=== PATIENT | female | born 1990 | race Caucasian/White ===

== ENCOUNTER 2023-02-05 19:23 | Emergency (ER) | payer OTHER ==
[~2023-02-05] VITALS: Ht 170.2 cm; Wt 70.9 kg
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
[2023-02-05] MEDS ORDERED: IBUPROFEN 600 MG TABLET ONE (20:18)
[2023-02-05] MEDS ORDERED: IBUPROFEN 600 MG TABLET PO ONE (20:30)
--- NOTE | 2023-02-05 21:19 | NUR ---
URINE COLLECTED AND SENT TO SEND TO LAB
[2023-02-06 00:59] VITALS: BP 120/66
--- NOTE | 2023-02-06 01:00 | NUR ---
Patient discharged to [facility] in stable condition. Written and verbal after care instructions given. Patient verbalizes understanding of instruction.
== END 2023-02-06 01:01 ==
LOC: ER 19:31
DX: S02.40DA Maxillary fracture, left side, initial encounter for closed fracture (principal); R68.84 Jaw pain; F31.9 Bipolar disorder, unspecified; F17.200 Nicotine dependence, unspecified, uncomplicated; Y04.2XXA Assault by strike against or bumped into by another person, initial encounter; Y93.89 Activity, other specified; Y92.89 Other specified places as the place of occurrence of the external cause; Y99.8 Other external cause status
CPT/HCPCS: 70486-TC; 84703-TC